=== PATIENT | male | born 1990 | race Hispanic/Latino ===

== ENCOUNTER 2023-11-28 11:00 | Emergency (ER) | payer OTHER, SELFPAY ==
[2023-11-28 11:03] VITALS: BP 130/78
--- NOTE | 2023-11-28 11:39 | ED.GENMED ---
History of Present Illness
General
Chief Complaint: Back Pain
Time Seen by Provider: 11/28/23 11:27
History of Present Illness
History of Present Illness:
33-year-old male presents the emergency department for evaluation of left-sided low back pain. He is 2 days status post epidural injection due to chronic disc pathology, underwent a spinal surgery in May at [facility], the details are not
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 Since that surgery he has had persistent left leg weakness and numbness that has not changed. Denies any loss of bladder or bowel function. States this morning he was
attempting to put a sock on when he lost his balance and felt severe left-sided low back pain
Past History
Past History
ED Past Medical History: None
ED Past Surgical History: None
Social History
Tobacco: Former smoker
Employment: Employed
Review of Systems
Review of Systems
Allergies reviewed?: Yes
All Other Systems: ROS reviewed and negative except as documented in HPI and ROS
Phy Exam
Physical Exam
Physical Exam:
GEN: Well appearing, NAD, WDWN
HEENT: Oral mucosa moist, no scleral icterus
Cardiac: Regular rate
Lung: No respiratory distress, no tachypnea
MSK: No gross deformity or injuries
Skin: Good color, no pallor or jaundice, no rashes
Neuro: AO x3, moves all extremities freely. Left leg strength is 4 out of 5 in all fu with a diminished left patellar reflex, patient states this is baseline
Psych: Calm, cooperative
Course
Orders/Labs/Results
Orders:
Orders
11/28/23 11:38
Acetaminophen [Tylenol] 1,000 mg PO NOW STA
Ketorolac [Toradol] 30 mg IM NOW STA
Lidocaine [Lidocaine 4% Patch] 1 patch TOPICAL NOW STA
Apply Lidocaine patch(s) to:: low back
Oxycodone [Roxicodone] 5 mg PO NOW STA
Vital Signs
Initial and Last Documented VS:
Initial Vital Signs
Temp Pulse Resp BP Pulse Ox
97.8 F 68 18 130/78 98
11/28/23 11:03 11/28/23 11:03 11/28/23 11:03 11/28/23 11:03 11/28/23 11:03
Last Documented Vital Signs
Temp Pulse Resp BP Pulse Ox
97.8 F 68 18 130/78 98
11/28/23 11:03 11/28/23 11:03 11/28/23 11:03 11/28/23 11:03 11/28/23 11:03
MDM/Problems Addressed
MDM/Problems Addressed:
33-year-old male presents with acute on the chronic low back pain. He has no symptoms that are suspicious for emergent spinal compression. Will treat supportively, recommend outpatient spine specialty follow-up
*Critical Care Note
Total Time (30-74mins, 75-104mins- exclusive of procedures): Not Applicable
ED Attending Note
-
Portions of this chart may have been created with voice recognition software.� Occasional wrong word or��sound alike� substitutions may have occurred due to the inherent limitations of voice recognition software.
Discharge Plan
Departure
Patient Disposition: Home (Routine Discharge)
Date of Disposition: 11/28/23
Time of Disposition: 11:40
Patient with high blood pressure during this ER visit?: No
Discharge Problem:
Acute left lumbar radiculopathy
Instructions: Low Back Pain (DC)
Prescriptions:
New
oxycodone 5 mg tablet
5 mg PO Q8H PRN (Reason: Pain) Qty: 10 0RF
methocarbamol 750 mg tablet
750 - 1,500 mg PO HS Qty: 15 0RF
diclofenac sodium 75 mg tablet,delayed release (DR/EC)
75 mg PO BID Qty: 10 0RF
No Action
cyclobenzaprine 10 mg tablet
10 mg PO TID PRN (Reason: muscle spasm) Qty: 10 0RF
prednisone 20 mg tablet
40 mg PO DAILY 5 Days Qty: 10 0RF
Referrals:
NONE,* [Family Provider] -
Interventions
Interventions:
*Risk Screen - Suicide Last Done: 11/28/23 11:02
*General Assessment Last Done: 11/28/23 11:02
*Neglect/Abuse Screening Last Done: 11/28/23 11:02
*Nursing Disposition Last Done: 11/28/23 11:54
ED-Musculoskeletal Assessment Last Done: 11/28/23 11:53
Discharge Date and Time
Discharge Date/Time: 11/28/23 11:54
Print Language: ICELANDIC
[2023-11-28] MEDS: TORADOL 30 MG IM (11:44)
[2023-11-28] MEDS: ROXICODONE 5 MG PO (11:44)
[2023-11-28] MEDS: LIDOCAINE 4% PATCH 1 PATCH TOPICAL (11:44)
[2023-11-28] MEDS: TYLENOL 1000 MG PO (11:45)
== END 2023-11-28 11:54 | disposition home or self-care (01) ==
LOC: EMR 11:00
PROVIDERS: EMERGENCY PHYSICIAN Emergency Medicine
DX: M54.16 Radiculopathy, lumbar region (principal); M62.81 Muscle weakness (generalized); G89.29 Other chronic pain; Z87.891 Personal history of nicotine dependence; Z98.890 Other specified postprocedural states
CPT/HCPCS: 99284; 96372

== ENCOUNTER 2024-05-08 15:08 | Emergency (ER) | payer OTHER, SELFPAY ==
[2024-05-08 15:25] VITALS: BP 148/99
[2024-05-08 15:57] VITALS: BP 126/81
[2024-05-08 16:04] VITALS: BMI 30.8
[2024-05-08 16:10] LABS: % Basophils 0.2 % (0-2); % Eosinophils 0.2 % (0-6); % Immature Granulocytes 0.3 % (0-0.5); % Lymphocytes 4.6 % (20.5-51.1); % Monocytes 3.1 % (1.7-9.3); % Neutrophils 91.6 % (42.2-75.2); Absolute Lymphocytes 0.4 10^3/uL (1.2-3.4); Absolute Monocytes 0.3 10^3/uL (0.1-0.6); Absolute Neutrophils 8.5 10^3/uL (1.4-6.5); Hematocrit 43.2 % (39.0-52.0); Hemoglobin 14.7 g/dL (13.0-18.0); Mean Corpuscular Hgb 27.9 pg (27.0-31.0); Mean Platelet Volume 8.7 fL (7.4-10.4); Nucleated Red Blood Cells % 0 % (-); Platelet Count 233 10^3/uL (130-400); Red Blood Cell Count 5.27 10^6/uL (4.70-6.10); Red Cell Dist. Width 13.4 % (11.5-14.5); White Blood Cell Count 9.3 10^3/uL (4.8-10.8)
--- NOTE | 2024-05-08 16:20 | ED.GENMED ---
History of Present Illness
General
Chief Complaint: Abdominal Pain
Source: patient
Exam Limitations: none
Time Seen by Provider: 05/08/24 16:17
History of Present Illness
History of Present Illness:
33-year-old male relatively sudden onset of left lower quadrant pain flank pain this morning. Some nausea vomiting. Pain is sharp in nature. No fever or chills. No urinary symptoms. No history of similar pain. No preceding pain management
Past History
Past History
ED Past Medical History: None
ED Past Surgical History: Orthopedic (Back surgery)
Social History
Tobacco: Former smoker
Employment: Employed
Review of Systems
Review of Systems
All Other Systems: Not applicable
Constitutional: Denies fever or chills
ABD/GI: Denies diarrhea
: Denies dysuria or frequency
Phy Exam
Physical Exam
Physical Exam:
GENERAL: Alert and oriented in no apparent distress
EYE: Orbits normal.
NECK: Supple, no significant adenopathy.
ENT: Pharynx without erythema
CARDIAC: Regular rate and rhythm without any obvious murmurs.
LUNGS: Clear breath sounds,normal
ABDOMEN: Soft, no distention. Bowel sounds present rib reproducible tenderness left lower quadrant. No CVA tenderness
NEUROLOGICAL: Alert and oriented , grossly non-focal
SKIN: Warm and dry, no rash or lesion, no discoloration, skin intact.
MUSCULOSKELETAL: No edema,no deformity.Good color
PSYCH: Normal and appropriate interaction.
Course
Orders/Labs/Results
Orders:
Orders
05/08/24 16:03
Complete Blood Count/With Diff Urgent
Comprehensive Metabolic Panel Urgent
Lipase Urgent
05/08/24 16:17
IV Insert/Care/Rem.- Treatment PRN
0.9% Sodium Chloride 1000 ml [Nss] 1,000 ml IV BOLUS
Ketorolac [Toradol] 15 mg IV NOW STA
Ondansetron Injectable [Zofran] 4 mg IV NOW STA
05/08/24 16:18
CT Abd/Pel (IV only)-DH only Urgent
Comment:
Reason For Exam: Left lower quadrant pain
05/08/24 17:54
Urinalysis Urgent
Date Specimen was Collected: 05/08/24
Time Specimen was Collected: 16:17
Urine Microscopic Urgent
Date Specimen was Collected: 05/08/24
Time Specimen was Collected: 16:17
Abnormal Lab Results
05/08/24 05/08/24
16:03 17:54
Absolute Neuts (auto) 8.5 H 10^3/uL
(1.4-6.5)
Absolute Lymphs (auto) 0.4 L 10^3/uL
(1.2-3.4)
Neutrophils % 91.6 H %
(42.2-75.2)
Lymphocytes % 4.6 L %
(20.5-51.1)
BUN 22 H mg/dl
(9-20)
Urine Ketones 2+ A
(Negative)
Urine Bacteria Few A
(Negative)
Urine Albumin 1+ A
(Neg - Trace)
05/08/24 16:03
05/08/24 16:03
Vital Signs
Initial and Last Documented VS:
Initial Vital Signs
Temp Pulse Resp BP Pulse Ox
98.7 F 98 16 148/99 98
05/08/24 15:25 05/08/24 15:25 05/08/24 15:25 05/08/24 15:25 05/08/24 15:25
Last Documented Vital Signs
Temp Pulse Resp BP Pulse Ox
98.7 F 98 16 119/73 99
05/08/24 15:25 05/08/24 15:25 05/08/24 15:25 05/08/24 18:00 05/08/24 18:30
MDM/Problems Addressed
Differential Diagnosis Includes:
Left lower quadrant pain and tenderness. Differential would include kidney stone with relatively sudden onset although with tenderness diverticulitis would be in the differential. Workup in progress. Pain management nausea management CT scan
*Radiology
Radiology exam reviewed: radiology read reviewed (CT negative)
*Pulse Oximetry
Patient hypoxic: no
*Critical Care Note
Total Time (30-74mins, 75-104mins- exclusive of procedures): Not Applicable
Update Note
Update Note:
Patient feeling better. No distress. No obvious etiology. Outpatient observation and close follow-up.
ED Attending Note
-
Portions of this chart may have been created with voice recognition software.� Occasional wrong word or��sound alike� substitutions may have occurred due to the inherent limitations of voice recognition software.
Discharge Plan
Departure
Patient Disposition: Home (Routine Discharge)
Date of Disposition: 05/08/24
Time of Disposition: 18:13
Patient with high blood pressure during this ER visit?: Yes
Discharge Problem:
Abdominal pain unknown etiology
Instructions: Nausea and Vomiting, Adult (DC), Abdominal Pain, BLOOD PRESSURE
Prescriptions:
New
ondansetron 4 mg tablet,disintegrating
4 mg PO TIDPRN PRN (Reason: nausea/vomiting) Qty: 14 0RF
No Action
cyclobenzaprine 10 mg tablet
10 mg PO TID PRN (Reason: muscle spasm) Qty: 10 0RF
prednisone 20 mg tablet
40 mg PO DAILY 5 Days Qty: 10 0RF
oxycodone 5 mg tablet
5 mg PO Q8H PRN (Reason: Pain) Qty: 10 0RF
methocarbamol 750 mg tablet
750 - 1,500 mg PO HS Qty: 15 0RF
diclofenac sodium 75 mg tablet,delayed release (DR/EC)
75 mg PO BID Qty: 10 0RF
Referrals:
Luis Balderas DO [Family Provider] - Follow up in 2-3 days
Activity Restrictions/Additional Instructions:
Advil or Motrin for pain. You could also take Tylenol.
The Zofran for nausea was called into your pharmacy
Light diet over the next 24 hours
Get rechecked with increasing pain fever recurrent vomiting.
Also get rechecked if symptoms have not improved over the next 1 to 2 days
Interventions
Interventions:
*Risk Screen - Suicide Last Done: 05/08/24 15:25
*General Assessment Last Done: 05/08/24 16:06
*Neglect/Abuse Screening Last Done: 05/08/24 16:06
ED- Fall Risk Assessment Last Done: 05/08/24 16:06
*ED COVID-19 Vaccine History Last Done: 05/08/24 16:06
*Nursing Disposition Last Done: 05/08/24 18:39
IF-Gvqzrq-Ujmxrflxmx Assessment Last Done: 05/08/24 16:06
Discharge Date and Time
Discharge Date/Time: 05/08/24 18:40
Print Language: ARMENIAN
[2024-05-08 16:22] LABS: ALT (SGPT) 29 U/L (0-50); AST (SGOT) 24 U/L (17-59); Albumin 4.2 g/dl (3.5-5.0); Alkaline Phosphatase 63 U/L (38-126); Blood Urea Nitrogen 22 mg/dl (9-20); Calcium 9.4 mg/dl (8.4-10.2); Carbon Dioxide 28 mmol/L (22-30); Chloride 104 mmol/L (98-107); Estimated Creatinine Clearance > 125 ml/min; Glucose 98 mg/dl (70-99); Lipase 64 U/L (23-300); Potassium 4.4 mmol/L (3.5-5.1); Sodium 138 mmol/L (135-145); Total Bilirubin 0.7 mg/dl (0.2-1.3); Total Protein 7.1 g/dl (6.3-8.2); eGFR > 60.00
[2024-05-08] MEDS: TORADOL 15 MG IV (16:22)
[2024-05-08] MEDS: ZOFRAN 4 MG IV (16:22)
[2024-05-08] MEDS: NSS 1000 IV (16:22)
[2024-05-08 17:00] VITALS: BP 121/72
[2024-05-08 18:00] VITALS: BP 119/73
[2024-05-08 18:05] LABS: Urine Albumin 1+ (Neg - Trace); Urine Bilirubin Negative (Negative); Urine Character Clear (Clear); Urine Color Yellow; Urine Glucose Negative (Negative); Urine Ketone 2+ (Negative); Urine Leukocyte Negative (Negative); Urine Nitrite Negative (Negative); Urine Occult Blood Negative (Negative); Urine Specific Gravity 1.005 (<1.030); Urine Urobilinogen 1+ (Neg - 1+)
[2024-05-08 18:12] LABS: Urine Bacteria Few (Negative); Urine Red Blood Cell 0-2 /HPF (0-2); Urine Squamous Cell 0-2 /LPF (Few); Urine White Cell 0-2 /HPF (0-5)
== END 2024-05-08 18:40 | disposition home or self-care (01) ==
LOC: EMR 15:08
PROVIDERS: EMERGENCY PHYSICIAN Emergency Medicine; FAMILY PHYSICIAN Family Medicine Sports Medicine
DX: R10.32 Left lower quadrant pain (principal); Z87.891 Personal history of nicotine dependence
CPT/HCPCS: 99284; 96374; 96375; 96361; 74177; 80053; 81003; 81015; 83690; 85025; Q9967